=== PATIENT | male | born 1970 | race Caucasian/White ===

== ENCOUNTER 2017-08-17 13:08 | Day surgery (SDC) | payer OTHER ==
[~2017-08-17] VITALS: Ht 180.3 cm; Wt 104.8 kg
[~2017-08-17 13:08] MED LIST: ALLO100 PO; ALLO300 PO; ASPI81CH PO; CRUTCH3 USE; Cipro500 MG PO; HYDACE5 PO; INDO50 PO; LISI5 PO; METF500 PO; NAPR500 PO; NAPR550 PO; OXYACE5T PO; PRED20 PO; Percocet 5-3251 EACH PO; RXNAPNA550 PO; SULTRIDS PO; TAMS.4ER PO; Zofran4 MG PO
[2017-08-17] MEDS ORDERED: CIPR500 PO (14:06)
[2017-08-17] MEDS ORDERED: HYDR1TAB94 PO (14:07)
== END 2017-08-17 16:52 | disposition home or self-care (01) ==
LOC: ORSCSDS 13:08
PROVIDERS: Orthopaedic Surgery
PROC: 0PSS34Z Reposition Left Thumb Phalanx with Internal Fixation Device, Percutaneous Approach (ICD-10-PCS; principal; 2017-08-17 14:45)
DX: S62.515A Nondisplaced fracture of proximal phalanx of left thumb, initial encounter for closed fracture (principal); E11.9 Type 2 diabetes mellitus without complications; I10 Essential (primary) hypertension; F17.210 Nicotine dependence, cigarettes, uncomplicated; F17.220 Nicotine dependence, chewing tobacco, uncomplicated; Z79.82 Long term (current) use of aspirin; Z79.84 Long term (current) use of oral hypoglycemic drugs; Z79.899 Other long term (current) drug therapy
CPT/HCPCS: 82947; J0690; J2250; J3010

== ENCOUNTER 2018-10-27 12:53 | Emergency (ER) | payer OTHER ==
[~2018-10-27] VITALS: Ht 180.3 cm; Wt 105.7 kg
[~2018-10-27 12:53] MED LIST changes: +CIPR500 PO; +HYDR1TAB94 PO
[2018-10-27 13:13] LABS: Source, Urine Clean Catch
[2018-10-27 13:16] LABS: Bilirubin, Urine Neg (Neg); Blood, Urine Neg (Neg); Glucose Qualitative, Urine 1+ (Neg); Ketones, Urine Neg (Neg); Leukocyte Esterase, Urine 1+ (Neg); Nitrite, Urine Neg (Neg); Protein, Urine 2+ (Neg); Specific Gravity, Urine 1.025 (1.003-1.022); Urobilinogen, Urine NORM (Normal)
[2018-10-27 13:32] LABS: BASOPHILS ABSOLUTE AUTO 0.04 K/mm3 (0.00-0.23); BASOPHILS PERCENT AUTO 0 % (0-2); EOSINOPHILS ABSOLUTE AUTO 0.24 K/mm3 (0.00-0.68); EOSINOPHILS PERCENT AUTO 2 % (0-6); Hematocrit 52.5 % (37.0-53.0); Hemoglobin 17.8 g/dL (13.5-17.5); IMMATURE GRAN ABSOLUTE AUTO 0.07 K/mm3 (0.00-0.10); IMMATURE GRAN PERCENT AUTO 1 % (0-1); LYMPHOCYTES ABSOLUTE AUTO 1.88 K/mm3 (0.84-5.20); LYMPHOCYTES PERCENT AUTO 16 % (21-46); MONOCYTES ABSOLUTE AUTO 0.63 K/mm3 (0.16-1.47); MONOCYTES PERCENT AUTO 5 % (4-13); Mean Corpuscular HGB Conc 33.9 g/dL (31.5-36.5); Mean Corpuscular Volume 89 fL (80-100); Mean Platelet Volume 9.5 fL (9.1-12.4); NEUTROPHILS ABSOLUTE AUTO 8.99 K/mm3 (1.96-9.15); NEUTROPHILS PERCENT AUTO 76 % (41-73); Platelet Count 277 K/mm3 (150-400); RDW Coefficient Variation 13.2 % (11.7-14.2); RDW Standard Deviation 42.3 fL (35.1-46.3); Red Blood Cell Count 5.93 M/mm3 (4.30-5.90); White Blood Cell Count 11.85 K/mm3 (4.00-11.30)
[2018-10-27 13:36] LABS: Appearance, Urine Clear (Clear); Color, Urine Yellow (P-Yellow)
[2018-10-27 13:39] LABS: Bacteria Few /hpf; Red Blood Cells, Urine Not Seen /hpf (0-2); Squamous Epithelial Cells Mod /hpf (Few); White Blood Cells, Urine Rare /hpf (0-5)
[2018-10-27 13:46] LABS: Albumin, Blood 4.2 g/dL (3.4-5.0); Albumin/Globulin Ratio 1.3 (0.8-1.8); Bilirubin, Total 0.7 mg/dL (0.1-1.0); Bun/Creatinine Ratio 10.3 (12.0-20.0); Calcium, Blood 9.3 mg/dL (8.5-10.1); Creatinine, Blood 1.36 mg/dL (0.60-1.20); Globulin, Blood 3.2 g/dL (2.2-4.0); Potassium, Blood 4.2 mmol/L (3.5-5.5); Total Protein, Blood 7.4 g/dL (6.4-8.2)
[2018-10-27] MEDS ORDERED: IBUP400 PO (15:50)
== END 2018-10-27 16:42 | disposition home or self-care (01) ==
LOC: ER 12:53
PROVIDERS: Emergency Medicine
DX: N20.0 Calculus of kidney (principal); E11.9 Type 2 diabetes mellitus without complications; M10.9 Gout, unspecified; F17.220 Nicotine dependence, chewing tobacco, uncomplicated; Z79.899 Other long term (current) drug therapy; Z79.82 Long term (current) use of aspirin; Z79.84 Long term (current) use of oral hypoglycemic drugs
CPT/HCPCS: 36415; 74176; 80053; 81001; 83690; 85025; 87086; 96374; 96375; 99284-25; J1170; J1885; J2405

== ENCOUNTER 2019-03-03 21:29 | Emergency (ER) | payer OTHER ==
[~2019-03-03] VITALS: Ht 180.3 cm; Wt 108.9 kg
[~2019-03-03 21:29] MED LIST changes: +IBUP400 PO
[2019-03-03] MEDS ORDERED: Percocet 5-3251 EACH PO (22:56)
[2019-03-03] MEDS ORDERED: Indomethacin50 MG PO (22:56)
== END 2019-03-03 23:33 | disposition home or self-care (01) ==
LOC: ER 21:29
DX: M10.9 Gout, unspecified (principal); Z79.82 Long term (current) use of aspirin; Z79.899 Other long term (current) drug therapy; Z79.84 Long term (current) use of oral hypoglycemic drugs; E11.40 Type 2 diabetes mellitus with diabetic neuropathy, unspecified; F17.220 Nicotine dependence, chewing tobacco, uncomplicated
CPT/HCPCS: 96372; 99283-25; A9270; J3010

== ENCOUNTER 2022-01-13 07:15 | Day surgery (SDC) | payer OTHER ==
[~2022-01-13] VITALS: Ht 180.3 cm; Wt 111.1 kg
[~2022-01-13 07:15] MED LIST changes: +Amaryl2 MG PO; +Apple Cider Vi300 MG PO; +CINNAMON BARK PO; +Indomethacin50 MG PO; +ZYRTEC10 M2 PO; +[UNRECOGNIZED DRUG - OTHER] PO
--- NOTE | 2022-01-13 13:45 | NUR ---
Patient up to Ambulate independently. Gait steady. Discharge instructions reviewed with patient. Patient verbalizes understanding. Copy given to patient to take home, WELL FRIEND WITH PT. Patient States Post-Procedure ride home has been arranged. Discharged via wheelchair to private car for ride home. PT REPORTS FEELING READY TO GO HOME, PAIN TOLERABLE.
== END 2022-01-13 13:45 | disposition home or self-care (01) ==
LOC: ORSCMMR 07:15 → ORD 07:30 → ORSCMMR 08:30
PROVIDERS: Surgery
PROC: 8E0W4CZ Robotic Assisted Procedure of Trunk Region, Percutaneous Endoscopic Approach (ICD-10-PCS; principal; 2022-01-13 08:30)
PROC: 0YUA4JZ Supplement Bilateral Inguinal Region with Synthetic Substitute, Percutaneous Endoscopic Approach (ICD-10-PCS; principal; 2022-01-13 08:30)
DX: K40.20 Bilateral inguinal hernia, without obstruction or gangrene, not specified as recurrent (principal); E11.40 Type 2 diabetes mellitus with diabetic neuropathy, unspecified; Z79.84 Long term (current) use of oral hypoglycemic drugs; Z79.899 Other long term (current) drug therapy; F17.220 Nicotine dependence, chewing tobacco, uncomplicated; E78.5 Hyperlipidemia, unspecified
CPT/HCPCS: 49650; S2900; 82947; A9270; C1781; J0690; J1100; J1885; J2250; J2405; J2704; J2710; J2795; J3010; J7120

== ENCOUNTER 2023-02-06 10:51 | Day surgery (SDC) | payer OTHER ==
[~2023-02-06] VITALS: Ht 180.3 cm; Wt 106.4 kg
[2023-02-06] VITALS (16 sets, daily range): BP systolic 115–150; BP diastolic 69–91
[~2023-02-06 10:51] MED LIST changes: +CEPH500 PO; +CINSULIN PO; +GLIMEPIRIDE2 M2 PO; +PRAVASTATIN SOD20 MG PO; +Pyridium100 MG PO; +RYBELSUS7 MG PO
--- NOTE | 2023-02-06 12:38 | NUR ---
Ambulatory in Day Surgery History, Chart, Medications and Allergies reviewed before start of procedure. Pre-Op teaching done. Pt verbalizes understanding.
--- NOTE | 2023-02-06 16:58 | NUR ---
ADMISSION/POST OP: REPORT RECEIVED FROM PHOTOFINISHING LABORATORY WORKER. PT TO ROOM AT ABOUT 1545. A/O, VSS. SURGICAL SITE WNL, SEE DERMATONE ASSESSMENT. DENIES NAUSEA OR PAIN AT THIS TIME . PT INSTRUCTED MANAGER NICU LIGHT USE AND FIRE SAFETY/IGNITION SOURCE ASSESSMENT COMPLETE. PT DENIES ANY IGNITION SOURCE AND REPORTS DOES NOT SMOKE. CALL LIGHT IN REACH
[2023-02-06] MEDS ORDERED: METF500C PO (17:23)
--- NOTE | 2023-02-06 18:37 | NUR ---
SUMMARY: NO ACUTE CHANGE SINCE POST OP. VSS, A/O. PAIN MANAGED AT THIS TIME. FULL SENSATION HAS NOT RETURNED YET, BUT PT ABLE TO WIGGLE TOES. AWAITING VOID, PT REPORTS NO URGE TO VOID. SURGICAL SITE WNL. NO N/V. PT SAYS THAT HE TAKES ER METFORMIN, MED REC UPDATED. PHARMACY REPORTS THAT HOSPITAL DOES NOT SUPPLY. PT FAMILY ASKED TO BRING HOME BOTTLE TONIGHT FOR PT TO RECEIVE DOSE. PER PT,FAMILY WILL BE HERE SOON WITH DOSE. PT USING CALL LIGHT. PLAN IS FOR DC TOMORROW, NO ACUTE SAFETY CONCERNS, REPORT PASSED TO NOC ELVA
--- NOTE | 2023-02-07 03:05 | NUR ---
SHIFT SUMMARY NO ACUTE CHANGES TO REPORT OVERNIGHT, PT S/P LEFT TOTAL KNEE, PT HAS DONE WELL OVERNIGHT. PAIN HAS BEEN WELL MANAGED WITH SCHEDULED TORADOL AND TYLENOL. PT HAS NOT REQUESTED ANY PRNS FOR PAIN. PT HAS BEEN UP AND AMBULATING, PT HAS VOIDED AND IS TOLERATING PO INTAKE. DRESSING C/D/I TO LEFT KNEE. PLAN IS FOR DISCHARGE TODAY. BED IN LOWEST POSITION, CALL LIGHT WITHIN REACH.
[2023-02-07 04:50] LABS: BASOPHILS ABSOLUTE AUTO 0.02 K/mm3 (0.00-0.23); BASOPHILS PERCENT AUTO 0 % (0-2); EOSINOPHILS PERCENT AUTO 0 % (0-6); Hematocrit 42.9 % (37.0-53.0); Hemoglobin 15.1 g/dL (13.5-17.5); IMMATURE GRAN ABSOLUTE AUTO 0.06 K/mm3 (0.00-0.10); IMMATURE GRAN PERCENT AUTO 1 % (0-1); LYMPHOCYTES ABSOLUTE AUTO 1.46 K/mm3 (0.84-5.20); LYMPHOCYTES PERCENT AUTO 12 % (21-46); MONOCYTES ABSOLUTE AUTO 0.72 K/mm3 (0.16-1.47); MONOCYTES PERCENT AUTO 6 % (4-13); Mean Corpuscular HGB 30.2 pg (26.0-34.0); Mean Corpuscular HGB Conc 35.2 g/dL (31.5-36.5); Mean Corpuscular Volume 86 fL (80-100); Mean Platelet Volume 9.2 fL (9.1-12.4); NEUTROPHILS ABSOLUTE AUTO 9.53 K/mm3 (1.96-9.15); NEUTROPHILS PERCENT AUTO 81 % (41-73); Platelet Count 267 K/mm3 (150-400); RDW Coefficient Variation 12.5 % (11.7-14.2); RDW Standard Deviation 38.3 fL (35.1-46.3); White Blood Cell Count 11.79 K/mm3 (4.00-11.30)
[2023-02-07 05:25] LABS: Bun/Creatinine Ratio 16.9 (12.0-20.0); Calcium, Blood 8.5 mg/dL (8.5-10.1); Creatinine, Blood 1.18 mg/dL (0.60-1.20); Potassium, Blood 4.3 mmol/L (3.5-5.5)
[2023-02-07 06:34] VITALS: BP 148/87
[2023-02-07] MEDS ORDERED: ASPI81CH PO (10:25)
[2023-02-07] MEDS ORDERED: Percocet 5-3251 EACH PO (10:25)
--- NOTE | 2023-02-07 11:47 | NUR ---
DISCHARGE PATIENT DISCHARGE INSTRUCTIONS GIVEN AND IV TAKEN OUT INTACT. ALL BELONGINGS BAGGED AND PATIENT ACKOWLEDGES UNDERSTANDING OF INSTRUCTIONS.
== END 2023-02-07 11:56 | disposition home or self-care (01) ==
LOC: ORSCMMR 10:51 → ORD 12:30 → SURS 16:20 → ORSCMMR 23:10
PROVIDERS: Orthopaedic Surgery
PROC: 0SRD0JA Replacement of Left Knee Joint with Synthetic Substitute, Uncemented, Open Approach (ICD-10-PCS; principal; 2023-02-06 12:30)
DX: M17.12 Unilateral primary osteoarthritis, left knee (principal); E11.9 Type 2 diabetes mellitus without complications; E78.5 Hyperlipidemia, unspecified; Z79.899 Other long term (current) drug therapy; Z79.82 Long term (current) use of aspirin; Z79.84 Long term (current) use of oral hypoglycemic drugs
CPT/HCPCS: 36415; 73560-LT; 80048; 82947; 85025; 97110; 97161; 97530; A9270; C1776; J0171; J0690; J0735; J1100; J1815; J1885; J2250; J2371; J2405; J2704; J2795; J3010; J7050; J7120

== ENCOUNTER → 2023-06-25 | Outpatient (CLI) | payer OTHER ==
[~2023-06-25] MED LIST changes: +METF500C PO
== END ==
LOC: LAB SHORT 08:06 → LAB 08:06
DX: D75.89 Other specified diseases of blood and blood-forming organs (principal); M77.52 Other enthesopathy of left foot and ankle; M79.672 Pain in left foot; K26.2 Acute duodenal ulcer with both hemorrhage and perforation
CPT/HCPCS: 88305; 88311

== ENCOUNTER → 2023-08-28 | Outpatient (CLI) | payer OTHER ==
[2023-08-28 11:22] LABS: Protein, Urine Quantitative 8.1 mg/dL (0.0-11.9)
[2023-08-28 11:28] LABS: Microalbumin, Urine Quant. <5.000 mg/L (0.000-20.000)
== END | disposition home or self-care (01) ==
LOC: LAB 09:52 → LAB SHORT 09:52
PROVIDERS: Internal Medicine Nephrology
DX: N18.30 Chronic kidney disease, stage 3 unspecified (principal); D63.1 Anemia in chronic kidney disease; E11.21 Type 2 diabetes mellitus with diabetic nephropathy; E83.41 Hypermagnesemia; E83.30 Disorder of phosphorus metabolism, unspecified; E78.00 Pure hypercholesterolemia, unspecified; R76.9 Abnormal immunological finding in serum, unspecified; R94.6 Abnormal results of thyroid function studies; R94.5 Abnormal results of liver function studies
CPT/HCPCS: 82043; 82570; 84156

== ENCOUNTER → 2024-12-31 | Outpatient (CLI) | payer OTHER | END | disposition home or self-care (01) | LOC: LAB SHORT 11:17 → LAB 11:17 | DX: D48.5 Neoplasm of uncertain behavior of skin (principal) | CPT/HCPCS: 88305 ==